=== PATIENT | female | born 1955 | race Caucasian/White ===

== ENCOUNTER 2022-08-05 15:01 | Outpatient (CLI) | payer OTHER, SELFPAY ==
--- NOTE | ~2022-08-05 | MR_ITS ---
MRI of the lumbar spine Clinical History: Back pain Technique: Axial T2-weighted images, and sagittal T1-weighted, T2-weighted, and T2 fat-sat images wer e acquired. Findings: There is posterior fusion from L3 through S1, with bilateral rods and transpedicular screws present. There is associated laminectomy defects at L3, L4, L5. There is a 5 mm retrolisthesis of L2 over L3. No fracture seen. No suspicious bone marrow signal abnormality seen. At L1-L2, there is moderate degenerative disc narrowing with facet arthropathy and minimal disc bulge . No spinal canal stenosis. There is mild bilateral neural foraminal narrowing. At L2-L3, there is disc bulge and facet arthropathy. There is lateral recess stenosis bilaterally. Th ere is severe bilateral neural foraminal narrowing, right worse than left. At L3-L4 and L4-L5, there is no disc bulge or herniation. No spinal canal stenosis. No definite neura l foraminal narrowing at these levels. At L5-S1, there is no definite disc bulge or herniation. No spinal canal stenosis or definite neural foraminal narrowing. Paravertebral soft tissues are unremarkable. Impression: Posterior fusion from L3 through S1 with associated laminectomy defects at L3, L4, L5. 5 mm retrolisthesis of L2 over L3. Lateral recess stenosis bilaterally and severe bilateral neural foraminal narrowing at L2-L3. Mild bilateral neural foraminal narrowing at L1-L2. Reviewed, dictated and finalized at [facility]. Impression: Posterior fusion from L3 through S1 with associated laminectomy defects at L3, L4, L5. 5 mm retrolisthesis of L2 over L3. Lateral recess stenosis bilaterally and severe bilateral neural foraminal narro wing at L2-L3. Mild bilateral neural foraminal narrowing at L1-L2.
== END 2022-08-05 15:02 ==
LOC: MICIMG 15:04
PROVIDERS: Visit Provider Neurological Surgery
DX: M54.50 Low back pain, unspecified (principal); Z98.1 Arthrodesis status
CPT/HCPCS: 72148

== ENCOUNTER 2022-08-28 08:56 | Outpatient (CLI) | payer OTHER, SELFPAY ==
--- NOTE | 2022-08-28 09:09 | ECG_ITS ---
Measurements Intervals Julian Rate: 83 P: 54 WA: 148 QRS: 33 QRSD: 98 T: 48 QT: 373 QTc: 441 Interpretive Statements SINUS RHYTHM BASELINE ARTIFACT NORMAL ECG NO PREVIOUS ECG AVAILABLE FOR COMPARISON Electronically Signed On 08-29-2022 16:17:41 CDT by Zhen Brewster M.D.
[2022-08-28 09:47] LABS: Appearance Urine Clear (Clear); Basophils Absolute Auto 0.1 K/mm3 (0.0-0.1); Basophils Percent Auto 0.9 % (0.2-1.2); Bilirubin Urine Negative (Negative); Blood Urine Negative (Negative); Color Urine Yellow (Yellow); Glucose Urine UA Negative (Negative); Hematocrit 41.9 % (37.0-47.0); Hemoglobin 14.4 g/dL (12.0-15.0); Immature Granulocyte Absolute 0.03 K/mm3 (0.00-0.031); Immature Granulocyte Percent A 0.4 % (0-0.5); Ketones Urine Negative (Negative); Leukocyte Esterase Ur Negative LEU/UL (Negative); Lymphocytes Absolute Auto 1.43 K/mm3 (0.9-3.2); Lymphocytes Percent Auto 19.1 % (18.3-44.2); Mean Corpuscular HGB Conc 34.4 g/dl (32-36); Mean Corpuscular Hemoglobin 30.8 pg (26-34); Mean Corpuscular Volume 89.7 fl (80-100); Monocytes Absolute Auto 0.5 K/mm3 (0.1-0.6); Monocytes Percent Auto 6.3 % (2.6-8.5); Neutrophils Absolute Auto 5.5 K/mm3 (1.3-6.7); Neutrophils Percent Auto 73.3 % (45.5-73.1); Nitrate Urine Negative (Negative); Platelet Count Result 330 k/mm3 (150-375); Protein Urine Negative (Negative); Red Blood Count 4.67 M/mm3 (4.2-5.4); Red Cell Distribution Width 13.5 % (11.5-14.5); Specific Grav Ur 1.012 (1.001-1.035); Urobilinogen Urine 0.2 mg/dL (<2.0); White Blood Count 7.5 K/mm3 (4.5-10.0)
[2022-08-28 09:57] LABS: Prothrombin Time 12.6 Seconds (11.1-14.7)
[2022-08-28 10:02] LABS: Add Urine Microscopic? NO
[2022-08-28 11:17] LABS: Anion Gap 5 mmol/L (8-16); Blood Urea Nitrogen 12 mg/dL (7-17); Calcium 8.9 mg/dL (8.4-10.2); Carbon Dioxide 26 mmol/L (22-30); Chloride 104 mmol/L (98-107); Estimated Glomerular Filt Rate > 60; Glucose 140 mg/dL (65-110); Potassium 4.2 mmol/L (3.4-5.0); Sodium 135 mmol/L (137-145)
== END 2022-08-28 08:57 | disposition home or self-care (01) ==
PROVIDERS: Visit Provider Neurological Surgery
DX: Z01.818 Encounter for other preprocedural examination (principal); M47.816 Spondylosis without myelopathy or radiculopathy, lumbar region; M48.062 Spinal stenosis, lumbar region with neurogenic claudication
CPT/HCPCS: 36415; 80048; 81003; 85025; 85610; 85730; 86850; 86900; 86901; 93005

== ENCOUNTER 2022-09-02 11:56 | Outpatient (CLI) | payer OTHER, SELFPAY ==
--- NOTE | ~2022-09-02 | XR_ITS ---
XR lumbar spine 2-3V DATE: 09/02/2022 12:31 INDICATION: Back pain TECHNIQUE: Standing AP, lateral and coned lateral lumbosacral views COMPARISON: None FINDINGS: Status post posterior and interbody spinal fusion at L3-S1. There is diffuse osteopenia. Mild dextroscoliosis of the lumbar spine. No fracture or bone destruction is evident. There is moderately prominent degenerative disease at L1-2 and L2-3 with mild retrolisthesis at L2-3. The sacroiliac joints are intact. There is abdominal aortic and iliac arterial calcification; no apparent abdominal aortic aneurysm is noted. IMPRESSION: Status post posterior and interbody spinal fusion at L3-S1 Moderately prominent degenerative disease at L1-2 and L2-3 with mild retrolisthesis at L2-3 Osteopenia Reviewed, dictated and finalized at location L. IMPRESSION: Status post posterior and interbody spinal fusion at L3-S1 Moderately prominent degenerative disease at L1-2 and L2-3 with mild retrolisth esis at L2-3 Osteopenia
== END 2022-09-02 11:57 ==
LOC: MICIMG 11:58
PROVIDERS: PCP Neurological Surgery; Visit Provider Neurological Surgery
DX: M85.88 Other specified disorders of bone density and structure, other site (principal); M54.9 Dorsalgia, unspecified
CPT/HCPCS: 72100

== ENCOUNTER 2022-09-04 11:51 | Inpatient (IN) | payer OTHER, SELFPAY ==
[2022-08-25 14:58] VITALS: BMI 22.3
--- NOTE | 2022-08-25 15:09 | PC.NURSE ---
PRE-OP INSTRUCTIONS, PLEASE READ CAREFULLY Report to the Outpatient Waiting Room, entrance under the green pavilion located off [facility], at time _0600_ on date _09/04/22_. Planned Procedure Time: _0730_. PACK A SMALL OVERNIGHT BAG AND LEAVE IN THE CAR Time changes happen often and if your time is changed the preop area will call you the afternoon before. - You and your visitor will be asked to self-screen and do not enter if you have any COVID symptoms. - A mask is optional within the hospital at this time. -VISITING HOURS 8AM-8PM Patients may have clear liquids (water, carbonated beverages, clear teas, apple juice) until 3 hours prior to surgery (0430 AM) with a maximum of 20 ounces. - No food from midnight until time of surgery Take the following medications with a SIP of water the morning of surgery: _ABILIFY, METOPROLOL, & INHALER, TAPENTADOL IF NEEDED_ DO NOT STOP ANY OF YOUR OTHER PRESCRIPTION MEDICATIONS PRIOR TO SURGERY ?EXCEPT THE FOLLOWING Medications to discontinue per physician ____N/A , Date to take last dose Please no make-up, nail sri lankan, hairspray, perfume, deodorant, or body powder the day of surgery. No jewelry (including any body piercings) or valuables the day of surgery, leave them at home. Please take a shower or bath the night before, or the morning of, surgery with an antibacterial soap. Wear comfortable, loose fitting clothing. - Jewelry must be removed prior to entering the operating room. Rings and piercings that are not removed may be cut off. - The hospital will not accept responsibility for valuables. - Please leave all valuables, including medications, at home the day of surgery. If you are going home after surgery, a licensed flatbed driver must drive you home. - NO public transportation without another adult if you receive anesthesia. - We recommend that an adult stay with you for 24 hours following discharge. - We also recommend that you do not drive, make important decision, drink alcoholic beverages, or take any drugs that were not prescribed by your health care provider for at least 24 hours after your discharge time. Follow any additional instructions given to you from your surgeon. If you or anyone in your household have experienced Covid symptoms in the past week, please notify your surgeon or the nurse liaison at the phone number below for possible testing. Telephone instructions given to _PATIENT_and asked if any additional questions and then verbalized understanding. Patient advised to call surgeon office or pre surgery nurse liaison [phone] if any additional questions.
[2022-09-04] VITALS (15 sets, daily range): BP systolic 145–195; BP diastolic 77–109; PULSE 68–89; RESP 14–24; TEMP 36.1–37.5; O2SAT 95–100
--- NOTE | ~2022-09-04 | XR_ITS ---
XR fluoroscopy no charge Indication: Lumbar fusion TECHNIQUE: Fluoroscopy used during lumbar fusion performed by [Oz Velázquez MD] on 09/05/19 23. 3 seconds with 2 images captured. FINDINGS: Correlate with procedure note. IMPRESSION: Fluoroscopy used during lumbar fusion. Correlate with procedural note. Reviewed, dictated and finalized at location A. IMPRESSION: Fluoroscopy used during lumbar fusion. Correlate with procedural no te.
--- NOTE | 2022-09-04 06:48 | WPDANESEPPF ---
Anes - Initial Pre Proc Eval Procedure: Operation Date: 09/04/22 07:30 Proposed Procedures p L 2-3 Posterior Lumbar Interbody Fusion with Revision of Posterior Instrumentation - Oz Velázquez MD Date/Time: 09/04/22 06:48 Surgeon: Oz Velázquez MD Pre Op Diagnosis: L 2-3 Spondylosis Patient Data Age: 67 Gender: F Height: 1.68 m Weight: 66.8 kg Allergies Allergy/AdvReac Type Severity Reaction Status Date / Time bee stings AdvReac Mild Rash Uncoded 09/04/22 06:06 IVP Dye AdvReac Mild Rash Uncoded 09/04/22 06:06 Home Medications Medication Instructions Recorded Confirmed Type albuterol sulfate 90 mcg/actuation 1 inh inhalation Q4H 12/02/21 08/25/22 History aerosol inhaler amlodipine 10 mg tablet (Norvasc) 10 mg PO DAILY 12/02/21 09/04/22 History aripiprazole 5 mg tablet (Abilify) 5 mg PO DAILY 12/02/21 09/04/22 History epinephrine 0.3 mg/0.3 mL 0.3 mg IM ONCE PRN BEE STING 12/02/21 08/25/22 History injection, auto-injector metoprolol succinate 50 mg 50 mg PO DAILY 12/02/21 09/04/22 History tablet,extended release 24 hr tamsulosin 0.4 mg capsule (Flomax) 0.4 mg PO DAILY 12/02/21 09/04/22 History tapentadol 50 mg tablet (Nucynta) 50 mg PO BID PRN Pain 12/02/21 09/04/22 History trazodone 150 mg tablet 150 mg PO QHS PRN Sleep 12/02/21 09/04/22 History lisinopril 40 mg tablet 40 mg DAILY 08/25/22 09/04/22 History Patient hx anesthesia problems: none Family hx anesthesia problems: none Results Review: All pre-operative results and documents have been reviewed as part of the pre-operative evaluation. [facility] Past Medical History Medical History Anxiety Asthma Hypertension Kidney disease Pre-op testing Surgical History Surgical History (Updated 09/04/22 @ 06:48 by Jerry Hammond MD) H/O lumbosacral spine surgery H/O neck surgery H/O: hysterectomy Family History Family History Other Depression Diabetes mellitus Heart disease Hypertension Social History Social History Smoking status: Never smoker Second hand tobacco smoke exposure: No Alcohol intake: never Substance use: never Substance use type: does not use Living arrangements: alone Spiritual care concerns: No Anes - Eval Final PreProcedure Day of Procedure 09/04/22 06:48 Patient weight: normal Heart: regular rate and rhythm Lungs: clear to auscultation Airway: Mallampati scale class III and special considerations poor opening and poor dentition Neurological: alert and oriented Last oral intake: >/= 8 hours ASA classification: III Emergent: no Anesthetic plan: proceed Anesthesia type and monitoring: general ETT and standard monitoring Results Review: All pre-operative results and documents have been reviewed as part of the pre-operative evaluation. Informed Consent: The patient's anesthetic plan and its attendant risks and benefits were discussed with the patient/family/POA. Questions were solicited and answers provided to the satisfaction of the patient/family/POA.
[2022-09-04] MEDS: LACTATED RINGERS 1,000 ML 30 ML IV CONT ×2 (07:16→10:15)
--- NOTE | 2022-09-04 07:39 | WPDHPUPDATE1 ---
History and Physical Update Update Date/Time: 09/04/22 07:39 History and Physical has been reviewed, including an updated exam of the patient. There are NO changes in the patient's condition. Risks, benefits, and alternatives have been discussed and questions answered. Patient agrees to proceed with procedure.
--- NOTE | 2022-09-04 07:39 | PM.IMHP ---
H&P: HPI History of Present Illness Date/Time: 09/04/22 07:39 Chief Complaint: Back and leg pain Narrative: Jennifer is a 67-year-old female who is well known to me for problems related to her back and to has adjacent level issues including spondylosis and stenosis at L2-3 above her previous construct and presents now for L2-3 posterior lumbar interbody fusion advancing her fusion to L2. She has not changed appreciably since we last saw her. She is not having bowel or bladder difficulty. She does not have specific muscle group weakness or dermatomal numbness. Review of Systems Review of Systems: Patient denies shortness of breath, cough, fever, chills, nausea, vomiting, weight loss, weight gain, chest pain, dysuria. She has back and leg pain as above. Review of systems is otherwise negative on 12 systems except as noted elsewhere. [facility] Past Medical History Medical History Anxiety Asthma Hypertension Kidney disease Pre-op testing Surgical History Surgical History (Updated 09/04/22 @ 06:48 by Jerry Hammond MD) H/O lumbosacral spine surgery H/O neck surgery H/O: hysterectomy Family History Family History Other Depression Diabetes mellitus Heart disease Hypertension Social History Social History Smoking status: Never smoker Second hand tobacco smoke exposure: No Alcohol intake: never Substance use: never Substance use type: does not use Living arrangements: alone Spiritual care concerns: No Meds Home Medications and Allergies Home Medications Medication Instructions Recorded Confirmed Type albuterol sulfate 90 mcg/actuation 1 inh inhalation Q4H 12/02/21 08/25/22 History aerosol inhaler amlodipine 10 mg tablet (Norvasc) 10 mg PO DAILY 12/02/21 09/04/22 History aripiprazole 5 mg tablet (Abilify) 5 mg PO DAILY 12/02/21 09/04/22 History epinephrine 0.3 mg/0.3 mL 0.3 mg IM ONCE PRN BEE STING 12/02/21 08/25/22 History injection, auto-injector metoprolol succinate 50 mg 50 mg PO DAILY 12/02/21 09/04/22 History tablet,extended release 24 hr tamsulosin 0.4 mg capsule (Flomax) 0.4 mg PO DAILY 12/02/21 09/04/22 History tapentadol 50 mg tablet (Nucynta) 50 mg PO BID PRN Pain 12/02/21 09/04/22 History trazodone 150 mg tablet 150 mg PO QHS PRN Sleep 12/02/21 09/04/22 History lisinopril 40 mg tablet 40 mg DAILY 08/25/22 09/04/22 History Allergies Allergy/AdvReac Type Severity Reaction Status Date / Time bee stings AdvReac Mild Rash Uncoded 09/04/22 06:06 IVP Dye AdvReac Mild Rash Uncoded 09/04/22 06:06 Vital Signs Vital Signs - 24 hr 09/04/22 06:15 09/04/22 07:05 Temperature 98.4 F 99 F Pulse Rate 88 82 Respiratory Rate 16 16 Blood Pressure 195/109 H 180/78 H Pulse Oximetry 100 100 Oxygen Delivery Room Air Room Air Exam Narrative: Strength is 5/5 in all muscle groups of the bilateral lower extremities. Sensation is intact to light touch throughout the lower extremities. Breathing is nonlabored. She speaks in complete sentences without difficulty. Regular rate and rhythm Assessment and Plan Assessment and plan (1) Lumbar spondylosis: Code(s): M47.816 - Spondylosis without myelopathy or radiculopathy, lumbar region Status: Acute (2) Status post lumbar spinal fusion: Code(s): Z98.1 - Arthrodesis status Status: Acute (3) Lumbar stenosis with neurogenic claudication: Code(s): M48.062 - Spinal stenosis, lumbar region with neurogenic claudication Status: Acute Plan Jennifer is a 67-year-old female with junctional stenosis at L2-3 presents for advancement of her fusion L2 by way of posterior lumbar interbody fusion at L2-3. I described to her that operation again, its risks, potential benefits, the operative and postoperative course in detail and answere
[2022-09-04] MEDS: ceFAZolin 2 GM/D5W 50 ML 2 GM/50 ML BAG IVPB (07:48)
[2022-09-04] MEDS: HEMOSTATIC MATRIX (SURGIFLO with THROMBIN) KIT 1 KIT XX (08:52)
[2022-09-04] MEDS: LIDO 1%/EPINEPHRINE 1:100,000 20 ML VIAL INFILTRATE (08:53)
[2022-09-04] MEDS: fentaNYL CITRATE INJ (*CRX) 100 MCG/2 ML VIAL 25 MCG IV PUSH ×7 (10:40→11:45)
--- NOTE | 2022-09-04 12:26 | ADMGEN ---
This patient, Jennifer Westfall, was admitted to Medical Room 344-01. Patient/family oriented to hospital policies and general routines including ID bracelet, bed and alarms, visiting hours, pain management, procedures, bathroom and other care routines, personal items, smoking policy, room service/diet, and visiting hours. Information on how to activate the Rapid Response Team has been discussed. Patient/Family are encouraged to report perceived risks to care and to ask questions if they do not understand what they are told or what they should do.
[2022-09-04] MEDS: ARIPiprazole 5 MG TABLET PO (13:12)
[2022-09-04] MEDS: METOPROLOL SUCCINATE EXT REL 50 MG TABCR PO (13:12)
[2022-09-04] MEDS: amLODIPine BESYLATE 5 MG TABLET 10 MG PO (13:15)
[2022-09-04] MEDS: TAMSULOSIN HCL 0.4 MG CAPSULE PO (13:15)
[2022-09-04] MEDS: HYDROcodone/acetaminophen (*CRX) 10-325 MG TABLET 1 TAB PO ×2 (13:17→20:34)
[2022-09-04] MEDS: ceFAZolin 1 GM/NS 50 ML 1 GM/50 ML BAG IVPB ×2 (14:35→22:21)
[2022-09-04] MEDS: ALBUTEROL SULFATE (*SP) AEROSOL 1 PUFF INHALATION ×2 (16:09→21:16)
[2022-09-04] MEDS: HYDROmorphone HCL INJ (*CRX) 1 MG/ML SYR 0.5 MG IV PUSH (16:36)
[2022-09-04] MEDS: DOCUSATE SODIUM 100 MG CAPSULE PO (20:34)
[2022-09-04] MEDS: CYCLOBENZAPRINE HCL 10 MG TABLET PO (20:35)
[2022-09-04] MEDS: traZODone HCL 50 MG TABLET 150 MG PO (20:36)
[2022-09-04] MEDS: KCL 20 MEQ/D5/0.45% SOD CHL 1,000 ML 100 ML IV CONT (22:00)
[2022-09-05 00:04] VITALS: BP 170/74; PULSE 65; RESP 18; TEMP 36.3; O2SAT 94
[2022-09-05] MEDS: HYDROcodone/acetaminophen (*CRX) 10-325 MG TABLET 1 TAB PO ×4 (00:29→15:54)
[2022-09-05 05:01] VITALS: BP 168/84; PULSE 71; RESP 18; TEMP 36.6; O2SAT 100
[2022-09-05] MEDS: ALBUTEROL SULFATE (*SP) AEROSOL 1 PUFF INHALATION ×3 (05:25→12:57)
[2022-09-05] MEDS: ceFAZolin 1 GM/NS 50 ML 1 GM/50 ML BAG IVPB (06:08)
[2022-09-05] MEDS: KCL 20 MEQ/D5/0.45% SOD CHL 1,000 ML 100 ML IV CONT (06:08)
[2022-09-05 08:09] VITALS: PULSE 78; RESP 20
[2022-09-05 08:49] VITALS: PULSE 75
[2022-09-05] MEDS: TAMSULOSIN HCL 0.4 MG CAPSULE PO (08:49)
[2022-09-05] MEDS: ARIPiprazole 5 MG TABLET PO (08:49)
[2022-09-05] MEDS: lisinopriL 20 MG TABLET 40 MG PO (08:49)
[2022-09-05] MEDS: amLODIPine BESYLATE 5 MG TABLET 10 MG PO (08:49)
[2022-09-05] MEDS: METOPROLOL SUCCINATE EXT REL 50 MG TABCR PO (08:49)
--- NOTE | 2022-09-05 08:57 | W.PM.PROC2 ---
Procedure Note - Detailed Date of Procedure 09/05/22 Pre-op Diagnosis L 2-3 Spondylosis Post-op Diagnosis Same Procedure Performed L2-3 PLIF Surgeon Oz Velázquez MD Anesthesia General Description of Procedure the patient was brought to the operating room in the supine position, was sedated, intubated and placed under general anesthesia in routine fashion. She was then turned into the prone position on a Tristian frame. The area of operation on her back was examined, marked for incision, prepped and draped in routine sterile fashion. Incision was marked over the L2 through 4 spinous processes in the midline. This area was injected with 0.5% lidocaine with [id number] epinephrine. Intravenous antibiotics were given prior to incision. Incision was made with a 10 blade scalpel down to the lumbodorsal fascia. A subperiosteal dissection of the muscle and soft tissue away from the spinous process and lamina was performed with a subperiosteal elevator and Bovie cautery. A verifying x-rays and told our level a repeat urine the instrumentation in the home we will the L2 spinous process was removed with a Peace rongeur. Kerrison punches, curved curettes and a Leksell rongeur were used to remove lamina in the midline and till the soft contents of the canal or encounter. A Midas Jose drill was used to resect the pars bilaterally at L2. The inferior jugular process and facet of L2 could then be removed bilaterally. These plus the spinous process were stripped free of soft tissue and morselized for later use as interbody autograft. Kerrison punches and curved curettes were used to define a plane with the dura and removed bone and ligament flushed with the pedicle and through the foramen widely decompressing the exiting nerve roots. With the thecal sac retracted and protected the disc space was entered using an 11 blade scalpel. Scrapers of various sizes, curettes of various configurations, but the 2 lee rongeur and a rasp were used to remove as much cartilaginous endplate and disc material as possible down to bleeding cortical flat surfaces on the opposing bones. The disc space was then sized an appropriately sized interbody device was chosen and filled with local autograft bone. This was a 9 mm x 26 mm interbody device and was placed from the left. The disc space was likewise filled with local autograft bone medially and anteriorly. The interbody device was then placed with 2-3 mm countersink within the disc space. Pedicle screw instrumentation was performed by observing and palpating the pedicle wall a hole was made in the superior articular process above the pedicle. The pedicle was then cannulated with a pedicle probe, checked for continuity with the ball probe, tapped with a 5.5 mm tap and a 6.5 x 45 mm screw was placed into each L2 pedicle. Lateral connectors were placed between L3 and L4 on the previous radha and secured position using the appropriate cap. 60 mm rods were placed between the screw head and the lateral connector on each side and secured in position. These were all definitively tightened using the torque and anti torque device. The wound was then copiously irrigated with bacitracin irrigation and all bleeding was stopped with bipolar and Bovie cautery and Gelfoam thrombin powder. The wound was then closed in layered fashion with 2-0 Vicryl interrupted sutures in the lumbodorsal fascia and Layne's layer. 3-0 Vicryl buried interrupted sutures were placed in the dermis and the skin was closed with a running 4-0 Monocryl subcuticular stitch and dressed with Dermabond. A medium Hemovac drain had been left in a subfascial position and carried out to the inferior and right at the incision prior to closure and was now attached to bulb suction. The patient was allowed to wake up in the operating room and was taken to the recovery room in stable condition. There were no immediate complications of this operation. All counts were reported
--- NOTE | 2022-09-05 10:32 | PCOTNOTE ---
Patient reports feeling ready to d/c, well aware of spinal precautions and declined any OT treatment interventions. Will continue plan of care if patient does not d/c today 09/05/22.
[2022-09-05 10:51] VITALS: BP 158/82; PULSE 70; RESP 18; TEMP 36.4; O2SAT 100
[2022-09-05 14:20] VITALS: BP 98/70; PULSE 69; RESP 18; TEMP 36.8; O2SAT 100
--- NOTE | 2022-09-06 10:39 | PC.NURSE ---
Pt calls & reports that [facility] in [place], [place] will not fill the script for Elizabeth as ordered by Dr Velázquez because the patient has a script for Nucynta that is filled by an [id number] in [place], [place]. Pt says that she does not want to take the Nucynta because it is too strong & she wants to take the Elizabeth that Dr Velázquez ordered, but the pharmacy said they can't fill it. I told her I would not be able to help since the decision not to fill the script was made by the pharmacist there & our provider ordered the medication. To my knowledge, no person from [facility] pharmacy has reached out to accomodate the patient's needs or ask for clarification, etc to resolve the issue. The patient stated that she will be fine. I'll just deal with it and put ice on it.
--- NOTE | 2022-09-15 09:18 | PM.DS ---
DS: Admitting Diagnosis Discharge Date 09/05/22 Admitting Diagnosis junctional spondylosis and stenosis DS: Discharge Diagnosis Discharge Diagnosis Plan same DS: Summary Hospital Course Hospital Course: patient was taken to the operating room on 09/04/2022 where an L2-3 posterior lumbar interbody fusion was performed without complication. The patient went to the floor postoperatively. A posterior for day 1 her Farias catheter and drain were removed. By the end of the day she was eating, ambulating and emptying her bladder her pain was under control with by mouth pain medicine. Her wound remained clean, dry and intact. She was afebrile with stable vital signs. She was therefore allowed to be discharged home. Time Spent with Patient Time attestation: Total time spent providing and/or coordinating discharge services: Exam Narrative: Neurologically intact Discharge Plan Discharge Attending physician on discharge: Oz Velázquez Consulting providers: Chava Brown Discharging Clinician: Oz Velázquez Anticipated Discharge Date/Time: 09/05/22 16:03 Patient Disposition: Home, Self-Care Activity: may shower Diet: as tolerated Wound Care Instructions: follow printed instructions Discharge Instructions: INSTRUCTIONS AFTER YOUR LUMBAR LAMINECTOMY/DECOMPRESSION/FORAMINOTOMY/DISCECTOMY Incisions may be closed with either: Steri-strips (let them wear off on their own). Surgical glue (let it peel off on its own). Sutures or ramsey (call the office for an appointment to have these removed). Keep the incision dry for the first three days after surgery. Never apply ointments or lotions to the incision. The incision should be checked daily. Notify the office if there is drainage, redness, or if you have fever with a temperature of over 100 degrees. After the third postop day, it is okay to shower. Let soap and water run over your incision. No soaking in a tub, hot tub, or pool for at least one month. You are encouraged to walk as much as comfortable, with assistance as needed. For example, it may be beneficial to walk short distances hourly during the waking hours and gradually increase walking during your recovery period. Fatigue can be common. Avoid any bending, heavy lifting, twisting movements. You have an [id number]-pound lift restriction until further advised by your physician (A gallon of milk weighs eight pounds). Make frequent position changes, avoiding long periods of sitting. Try not to sit more than 30 minutes at a time. You may engage in sexual activity in two weeks as tolerated. No housework, especially vacuuming, making beds, or doing laundry until seen in the office. You may walk stairs carefully. Minimize car rides for two weeks. Driving can usually be resumed within two weeks; however, you may not drive at that time if still taking pain medications. Once you are discharged from the hospital, please call the office to set up your postop appointment. The physician may order pain medication and/or muscle relaxers. As time goes by, you should require less of these. Always take your medication as ordered, and only if needed. If you take more than prescribed, it will not be refilled early. If you feel you require narcotic medication refill, kindly give the office a 72-hour notice. No refills are given over the weekend. Anti-inflammatory meds (like Ibuprofen, Aleve, Advil, Motrin) may be used if approved by your surgeon. Over the counter Tylenol products may be used but use caution mixing Tylenol with your pain medication. The common pain pills include Acetaminophen as an ingredient, you could cause liver damage if taking too much. Tylenol and Acetaminophen are the same drug. Resume your usual diet. Constipation is a common problem postop, especially when taking narcotic pain medications. You may use any over the counter laxative, or stool softener, following the bottle direction
== END 2022-09-05 16:30 | disposition home or self-care (01) | DRG 460 ==
LOC: ANH3MED 11:53
PROVIDERS: Admitting Provider Neurological Surgery; Visit Provider Neurological Surgery
PROC: (CPT 22612; principal; 2022-09-04 07:30)
DX: M48.062 Spinal stenosis, lumbar region with neurogenic claudication (principal); M47.816 Spondylosis without myelopathy or radiculopathy, lumbar region
CPT/HCPCS: 94640; 97161; 97165; 97530; 99199; A9270; C1713; J0690; J1100; J1170; J2405; J2704; J2710; J3010; J3480; J7120